=== PATIENT | male | born 1980 | race Caucasian/White ===

== ENCOUNTER 2019-04-08 07:37 | Outpatient (CLI) | payer OTHER ==
[~2019-04-08] VITALS: Ht 180.3 cm; Wt 84.4 kg
[~2019-04-08 07:37] MED LIST: AVELOX400 MG ORAL; LYRICA75 M1 ORAL; PROBIOTIC1 EAC5 PO; STRIBILD TABLE1 EACH PO
[2019-04-08] MEDS ORDERED: KLONOPIN1 MG ORAL (08:01)
[2019-04-08 08:02] VITALS: BP 129/82
[2019-04-08] MEDS ORDERED: Depo-Medrol 80mg Vial IARTIC ONE (08:45)
[2019-04-08] MEDS ORDERED: Bupivacaine 0.25% Inj 30ml INJ ONE (08:45)
--- NOTE | 2019-04-08 08:55 | Short Stay Surgery H&P ---
History of Present Illness History of Present Illness Chief Complaint Lower back pain. HPI José Miguel Alvarez is a 38 year old male who was admitted on for facet Injections. Patient History Allergies: Coded Allergies: PENICILLINS (Verified Allergy, Severe, Rash, 09/11/15) PAST MEDICAL HISTORY: (1) Lumbosacral spondylosis with radiculopathy Onset Date: ~ 03/2002 Patient History Narrative The patient has a history of lower back pain and multiple lumbar surgeries. He is here for bilateral facet injections. Medication History Scheduled Clonazepam* (Klonopin*), 2 MG ORAL HS, (Reported) Elvitegr/Cobicist/Emtric/Tenof (Stribild Tablet), 1 EACH PO DAILY, (Reported) Discontinued Medications Lactobacillus Combo No.11 (Probiotic), 1 EACH PO DAILY, (Reported) Discontinued Reason: Pt stopped taking med Pregabalin* (Lyrica*), 75 MG ORAL THREE TIMES A DAY, (Reported) Discontinued Reason: Pt stopped taking med Review of Systems Cardiovascular: Denies: no symptoms, see HPI, hypertension, CAD - stable, angina, [place], CABG, dysrhythmia, CHF, valvular disease, rheumatic heart disease, peripheral vascular disease, source of infx - skin, source of infx-indw cath, source of infx-prosthesis, other Respiratory: Denies: no symptoms, see HPI, asthma, chronic bronchitis, pneumonia, COPD, URI, tuberculosis, sleep apnea, CPAP, home 02, other Skeletal: Reports: osteroarthritis, spinal disc disease, trauma Gastrointestinal: Denies: no symptoms, see HPI, obesity, peptic ulcer disease, gastro esophageal reflux disease, hiatal hernia, jaundice, hepatitis A,B,C, other Genitourinary: Denies: no symptoms, see HPI, renal insufficiency, endstage renal disease, dialysis, UTI, urinary retention, BPH, other Neurologic: Reports: neuropathy Endocrine: Denies: no symptoms, see HPI, diabetes - type 1, diabetes - type 2, thyroid, post menopausal, other Hematologic: Denies: no symptoms, see HPI, anemia, coagulopathy, prior transfusion, other Physical Exam Vital Signs Last Vital Signs Date Time Temp Pulse Resp B/P (MAP) Pulse Ox O2 Delivery O2 Flow Rate FiO2 04/08/19 08:13 Room Air 04/08/19 08:02 97.0 75 18 129/82 99 Skin: normal HENT: normal Heart: normal Lungs: normal Abdomen: normal Extremities: normal Genitourinary: normal Plan Plan of Care Bilateral L4-L5 intra articular facet injections Preop Interventions surgery, physical therapy Attestation Are the patient's medical conditions optimized for surgery? Attestation Response: yes Dai Rios MD Apr 08, 2019 08:55
[2019-04-08] MEDS ORDERED: Isovue-M 300 15ml INJ ONE (08:57)
[2019-04-08] MEDS ORDERED: ALPRAZolam 0.5mg tab ORAL ONE (09:00)
--- NOTE | 2019-04-08 09:02 | Pre-Procedure Note/Attestation ---
Pre-Procedure Note/Attestation Complete Prior to Procedure Planned Procedure: bilateral Procedure Narrative: Bilateral L4-L5 intra-articular facet injection with steroids. Indications for Procedure Pre-Operative Diagnosis: lumbosacral spondylosis Attestation I attest that I discussed the nature of the procedure; its benefits; risks and complications; and alternatives (and the risks and benefits of such alternatives ), prior to the procedure, with the patient (or the patient's legal traveling sales representative). I attest that, if there was a reasonable possibility of needing a blood transfusion, the patient (or the patient's legal traveling sales representative) was given the [facility] standardized written summary, pursuant to the [place] Blood Safety Act ([place] Health and Safety Code # 1645, as amended). I attest that I re-evaluated the patient just prior to the surgery and that there has been no change in the patient's H&P, except as documented below: Dai Rios MD Apr 08, 2019 09:02
[2019-04-08 09:50] VITALS: BP 113/81
--- NOTE | 2019-04-08 09:56 | Operative Note - PDOC ---
Operative Note Operative Note Date of Operation/Procedure: Apr 08, 2019 Chief Complaint: Lower back pain Pre-op Diagnosis: lumbosacral spondylosis Procedure: Bilateral L4-L5 intra-articular facet injections with steroids. Post-op Diagnosis: lumbosacral spondylosis Post-op Diagnosis: same as pre-op Operative Findings: consistent w/pre-op dx studies Surgeon: Dai Rios MD Postdoctoral Research Fellow: none Additional Surgeons: none Anesthesiologist: none Anesthesia: local Specimen: none Complications: none Condition: stable Fluids: none Estimated Blood Loss: none Drains: none Packing: none Tourniquet time: 0 - min Implant(s) used?: No Indications for Procedure Lower back pain Description of Procedure The patient was seen and identified in the preoperative area. Risks, benefits, complications, and alternatives were discussed with the patient. The patient agreed to proceed with the procedure and signed the consent. The patient was placed in the prone position, and lumbosacral area was prepped with Betadine and draped in the usual sterile fashion. Critical pause was taken. Using right oblique fluoroscopy, the right L4-L5 facet joint was identified, and skin and deeper tissues were anesthetized with 1% lidocaine. A 25-gauge 3.5- inch spinal needle was guided intra-articularly by fluoroscopy to the L4-L5 joint. Tip position was confirmed on lateral fluoroscopy. After negative aspiration of CSF and blood with no paresthesias, 0.5mL of Isoview M22 was injected illustrating excellent arthrogram. Again after negative aspiration of CSF and blood with no paresthesias, 1 mL of a block solution was injected. Block solution contained 80 mg of Depo-Medrol and 1 mL of 0.5% preservative- free bupivacaine. The entire procedure was repeated on the left side. The needle was removed, skin was cleansed, and bandage applied. The patient tolerated the procedure well without complications, and was discharged from recovery room after meeting discharge. Dai Rios MD Apr 08, 2019 09:56
--- NOTE | 2019-04-08 09:57 | Brief Operative Note ---
Immediate Post Operative Note Operative Note Chief Complaint: Lower back pain Pre-op Diagnosis: lumbosacral spondylosis Procedure: Bilateral L4-L5 intra-articular facet injections with steroids. Post-op Diagnosis: lumbosacral spondylosis Post-op Diagnosis: same as pre-op Findings: consistent w/pre-op dx studies Surgeon: Dai Rios MD Sample Supervisor: none Additional Surgeons: none Anesthesiologist: none Anesthesia: local Specimen: none Complications: none Condition: stable Fluids: none Estimated Blood Loss: none Drains: none Packing: none Tourniquet time: 0 - min Implant(s) used?: Dai Ramos MD Apr 08, 2019 09:57
--- NOTE | 2019-04-08 10:03 | Discharge Summary ---
Discharge Summary Hospital Course Date of Admission 04/08/2019 Date of Discharge 04/08/2019 Admitting Diagnosis Lumbosacral spondylosis Reason for Hospitalization: short stay HPI José Miguel Alvarez is a 38 year old male who was admitted on for Epidural Injection Consultations none Procedures Bilateral L4-L5 facet injections with steroids and local anesthetics. Hospital Course short stay Discharge Condition Upon Discharge: stable Discharge Disposition Patient was discharged to home. Discharge Diagnoses: (1) Lumbosacral spondylosis with radiculopathy Discharge Instructions Discharge Instructions Follow up with: Dr. Rios Diet: regular Activity: resume normal activities Special Instructions No driving for 8 hours For Surgical Patients Clean and Dry: surgical site Dressing Care: keep dry and clean May shower: Yes Contact your physician for: bleeding, pain, tenderness, redness, swelling, yellowish discharge in the op. site For Congestive Heart Failure Reminder Follow up in two weeks. Dai Rios MD Apr 08, 2019 10:03
== END 2019-04-08 10:10 | disposition home or self-care (01) ==
LOC: RAD 07:37
DX: M43.17 Spondylolisthesis, lumbosacral region (principal); M54.17 Radiculopathy, lumbosacral region; Z79.899 Other long term (current) drug therapy
CPT/HCPCS: 62322; J1040; J3490; Q9967

== ENCOUNTER 2019-06-15 08:40 | Outpatient (CLI) | payer OTHER ==
[~2019-06-15] VITALS: Ht 180.3 cm; Wt 86.2 kg
[~2019-06-15 08:40] MED LIST changes: +KLONOPIN1 MG ORAL
[2019-06-15] MEDS ORDERED: Isovue-M 300 15ml INJ SCH (08:45)
[2019-06-15] MEDS ORDERED: DiphenhydrAMINE 50mg/ml Inj IM ONE (08:45)
--- NOTE | 2019-06-15 08:53 | Short Stay Surgery H&P ---
History of Present Illness History of Present Illness Chief Complaint Lower back pain with radiation into the bilateral lateral thighs. HPI José Miguel Alvarez is a 38 year old male who was admitted on for Bilateral Lumbar Pain Patient History Allergies: Coded Allergies: PENICILLINS (Verified Allergy, Severe, Rash, 09/11/15) PAST MEDICAL HISTORY: (1) Lumbosacral spondylosis with radiculopathy Onset Date: ~ 03/2002 (2) Lumbar radiculopathy, chronic Past Surgeries: (1) History of lumbar fusion Social History: (1) Nonsmoker (2) Lumbosacral spondylosis with radiculopathy Medication History Scheduled Clonazepam* (Klonopin*), 2 MG ORAL HS, (Reported) Elvitegr/Cobicist/Emtric/Tenof (Stribild Tablet), 1 EACH PO DAILY, (Reported) Review of Systems Cardiovascular: Denies: no symptoms, see HPI, hypertension, CAD - stable, angina, [place], CABG, dysrhythmia, CHF, valvular disease, rheumatic heart disease, peripheral vascular disease, source of infx - skin, source of infx-indw cath, source of infx-prosthesis, other Respiratory: Denies: no symptoms, see HPI, asthma, chronic bronchitis, pneumonia, COPD, URI, tuberculosis, sleep apnea, CPAP, home 02, other Skeletal: Reports: spinal disc disease, trauma Gastrointestinal: Denies: no symptoms, see HPI, obesity, peptic ulcer disease, gastro esophageal reflux disease, hiatal hernia, jaundice, hepatitis A,B,C, other Genitourinary: Denies: no symptoms, see HPI, renal insufficiency, endstage renal disease, dialysis, UTI, urinary retention, BPH, other Neurologic: Reports: neuropathy Endocrine: Denies: no symptoms, see HPI, diabetes - type 1, diabetes - type 2, thyroid, post menopausal, other Hematologic: Denies: no symptoms, see HPI, anemia, coagulopathy, prior transfusion, other Physical Exam Skin: normal HENT: normal Heart: normal Lungs: normal Abdomen: normal Extremities: abnormal Genitourinary: normal Plan Plan of Care The patient has chronic severe lower back pain and has not responded to conservative treatment. He is here for his second set of facet injections at L4 -L5 and L3-L4 levels bilaterally. Attestation Are the patient's medical conditions optimized for surgery? Attestation Response: yes Dai Rios MD Jun 15, 2019 08:53
--- NOTE | 2019-06-15 08:54 | Pre-Procedure Note/Attestation ---
Pre-Procedure Note/Attestation Complete Prior to Procedure Planned Procedure: bilateral Procedure Narrative: L3-L4 and L4-L5 intra-articular facet injections Indications for Procedure Pre-Operative Diagnosis: lumbosacral spondylosis Attestation I attest that I discussed the nature of the procedure; its benefits; risks and complications; and alternatives (and the risks and benefits of such alternatives ), prior to the procedure, with the patient (or the patient's legal service representative). I attest that, if there was a reasonable possibility of needing a blood transfusion, the patient (or the patient's legal service representative) was given the [facility] standardized written summary, pursuant to the [place] Blood Safety Act ([place] Health and Safety Code # 1645, as amended). I attest that I re-evaluated the patient just prior to the surgery and that there has been no change in the patient's H&P, except as documented below: Dai Rios MD Jun 15, 2019 08:54
--- NOTE | 2019-06-15 09:20 | NUR ---
DR HOLCOMB GAVE BENADRYL 50MG IM LUQ BUTTOCKS BEFORE PROCEDURE.
[2019-06-15 09:27] VITALS: BP 128/91
--- NOTE | 2019-06-15 10:11 | Brief Operative Note ---
Immediate Post Operative Note Operative Note Chief Complaint: Lower back pain with radiation to the bilateral thighs Pre-op Diagnosis: lumbosacral spondylosis Procedure: Bilateral L3-L4 and L4-L5 intra-articular facet injection with PRP. Post-op Diagnosis: lumbosacral spondylosis with radiculopathy Post-op Diagnosis: same as pre-op Findings: consistent w/pre-op dx studies Surgeon: Dai Rios MD Veneer Drier Feeder: none Additional Surgeons: none Anesthesiologist: none Anesthesia: local Specimen: none Complications: none Condition: stable Fluids: none Estimated Blood Loss: none Drains: none Packing: none Tourniquet time: 0 Implant(s) used?: Dai Ramos MD Jun 15, 2019 10:11
--- NOTE | 2019-06-15 10:13 | Discharge Summary ---
Discharge Summary Hospital Course Date of Admission 06/15/2019 Date of Discharge 06/15/2019 Admitting Diagnosis Lumbosacral spondylosis Reason for Hospitalization: short stay for facet injections HPI José Miguel Alvarez is a 38 year old male who was admitted on for Bilateral Lumbar Pain Consultations none Procedures bilateral L3-L4 and L4-L5 intra-articular facet injections with PRP Hospital Course short stay Discharge Condition Upon Discharge: improving Discharge Disposition Patient was discharged to home. Discharge Diagnoses: (1) Lumbosacral spondylosis with radiculopathy Discharge Instructions Discharge Instructions Assessment Dr. Rios Diet: regular Activity: okay to shower For Surgical Patients Dressing Care: may change May shower: Yes Contact your physician for: bleeding, pain, tenderness, redness, swelling, yellowish discharge in the op. site Dai Rios MD Jun 15, 2019 10:13
[2019-06-15 10:20] VITALS: BP 124/88
--- NOTE | 2019-06-15 10:25 | NUR ---
PT NOTICED SMALL RED SPOTS ON RIGHT HAND.DENIES ITCHING .DR HOLCOMB SAW THE SMALL RED SPOTS AND LEFT NO ORDERS. INSTRUCT PT TO OBSERVE AND CALL DR HOLCOMB IF IT GETS WORSE.
== END 2019-06-15 09:30 | disposition home or self-care (01) ==
LOC: RAD 08:40 → EDSTATUS 14:57
DX: M54.17 Radiculopathy, lumbosacral region (principal); Z98.1 Arthrodesis status; Z79.899 Other long term (current) drug therapy; G62.9 Polyneuropathy, unspecified
CPT/HCPCS: 62323; J1200